=== PATIENT | male | born 1980 | race Caucasian/White ===

== ENCOUNTER 2020-12-10 15:12 | Emergency (ER) | payer BC, SELFPAY ==
--- NOTE | ~2020-12-10 | XR_ITS ---
EXAMINATION: XR foot RT min 3V DATE: 12/10/2020 15:35 INDICATION: Medial right foot pain post trauma TECHNIQUE: Dorsoplantar, two oblique and lateral views of the right foot were obtained. COMPARISON: None. FINDINGS: Oblique nondisplaced fracture beginning in the mid first metatarsal diaphysis and extending proximall y towards the joint line, likely intra-articular. There is a second nondisplaced oblique intra-articu lar fracture at the medial side of the base of the second metatarsal. There is a second mildly commin uted oblique fracture in the mid to distal diaphysis of the second metatarsal with two thirds shaft w idths dorsal displacement and 13 degrees plantar angulation of the main distal fragment. There is a s econdary small fracture fragment at the proximal/dorsal margin of the fracture. Joint spaces are norm al throughout. Soft tissue swelling at the dorsum of the forefoot. IMPRESSION: 1. Nondisplaced intra-articular fractures at the base of the first and second metatarsals. 2. Displaced, mildly angulated and mildly comminuted mid diaphyseal fracture of the second metatarsal . Reviewed, dictated and finalized at location A. IMPRESSION: 1. Nondisplaced intra-articular fractures at the base of the first and second m etatarsals. 2. Displaced, mildly angulated and mildly comminuted mid diaphyseal fracture of the second metatarsal.
--- NOTE | 2020-12-10 15:16 | ED.LOWEXIN ---
HPI - Extremity Injury (Lower) General Chief Complaint: Extremity Injury, Lower Stated Complaint: Right foot Pain Time Seen by Provider: 12/10/20 15:36 Source: patient and RN notes reviewed Mode of arrival: ambulatory Limitations: no limitations History of Present Illness HPI Narrative: 40-year-old male presents with concern for right foot pain after an [place] a [place] park just prior to arrival. Reports he was jumping when he hit his foot and is now having pain at rest and with weightbearing. He denies intervention. He denies decreased sensation in the foot. Denies lacerations, abrasions. complaint: foot injury Injury: Right: foot Related Data Home Medications Medication Instructions Recorded Confirmed omeprazole 12/10/20 Allergies Allergy/AdvReac Type Severity Reaction Status Date / Time No Known Allergies Allergy Verified 12/10/20 15:21 Review of Systems Review of Systems: CONSTITUTIONAL: Denies malaise, chills, sweats, or fever. SKIN: Denies lacerations, abrasions, redness, swelling MUSCULOSKELETAL: Reports right foot pain NEUROLOGIC: Denies numbness, weakness. All systems reviewed & are unremarkable except as noted in HPI and below PMFSH Comments At time of signature, agree with nursing past medical, surgical, social and family history. There is no relevant family history pertinent to the presenting complaint Exam Narrative: GENERAL: Well-appearing, well-nourished, and in no acute distress. HEAD: Normocephalic, atraumatic. EYES: PERRLA, conjunctivae clear NECK: Supple. CHEST: Speaks in full sentences. No respiratory distress. HEART: Regular rate and rhythm. Normal and equal peripheral pulses. EXTREMITIES: Right foot, digits of right foot have normal strength and sensation, normal range of motion. No edema or ecchymosis. 5/5 strength with digit flexion and extension. Normal sensation with sensitivity to light touch and pain. Dorsal tenderness, mild dorsal deformity. No open wounds, no skin tenting, no devitalized tissue or atrophy, no trophic changes, alignment normal, nearby joints and structures intact. Distal pulses palpable and equal bilaterally, skin warm, dry, pink. Capillary refill less than 3 seconds. SKIN: Warm, dry, no rash. NEURO: Alert and oriented x3. PSYCH: Normal mood and affect Course Course Emergency Course: Patient is aware of diagnosis, understands and agrees to treatment plan. Anticipatory guidance given. Patient agrees to follow-up as directed and is aware of reasons to seek care at the emergency department. Portions of this record may have been created with voice recognition software Vital Signs Vital signs: Vital Signs Temperature 98.1 F 12/10/20 15:20 Pulse Rate 99 12/10/20 15:20 Respiratory Rate 20 12/10/20 15:20 Blood Pressure 153/88 H 12/10/20 15:20 Pulse Oximetry 98 12/10/20 15:20 Temperature 98.1 F 12/10/20 15:20 Pulse Rate 99 12/10/20 15:20 Respiratory Rate 20 12/10/20 15:20 Blood Pressure 153/88 H 12/10/20 15:20 Pulse Oximetry 98 12/10/20 15:20 Reviewed. MDM - Extremity Injury (Lower) MDM Narrative Medical decision making narrative: Patients injury and pain is consistent with musculoskeletal etiology. No signs of neurological or vascular compromise on exam. Compartments and tissues are soft without signs of compartment syndrome. Pain is felt appropriate for further evaluation on an outpatient basis. Imaging Data My impression: Images reviewed, interpreted by radiologist, agree, see report. Radiologist's impression: EXAMINATION: XR foot RT min 3V DATE: 12/10/2020 15:35 INDICATION: Medial right foot pain post trauma TECHNIQUE: Dorsoplantar, two oblique and lateral views of the right foot were obtained. COMPARISON: None. FINDINGS: Oblique nondisplaced fracture beginning in the mid first metatarsal diaphysis and extending proximally towards the joint line, likely intra-articular. There is a second nondisplaced obliqu
[2020-12-10 15:20] VITALS: BP 153/88; PULSE 99; RESP 20; TEMP 36.7; O2SAT 98
== END 2020-12-10 16:17 | disposition home or self-care (01) ==
PROVIDERS: Emergency Provider Nurse Practitioner
DX: S92.314A Nondisplaced fracture of first metatarsal bone, right foot, initial encounter for closed fracture (principal); S92.324A Nondisplaced fracture of second metatarsal bone, right foot, initial encounter for closed fracture; S92.321A Displaced fracture of second metatarsal bone, right foot, initial encounter for closed fracture; K21.9 Gastro-esophageal reflux disease without esophagitis
CPT/HCPCS: 29515; 73630; 99214; G0463